=== PATIENT | male | born 1965 | race Caucasian/White ===

== ENCOUNTER 2018-07-24 05:44 | Day surgery (SDC) | payer OTHER ==
[~2018-07-24] VITALS: Ht 172.7 cm; Wt 114.5 kg
[2018-07-24] MEDS ORDERED: SODIUM CHLORIDE 0.9% 1,000 ML IV ONE ×2 (06:18→06:30)
[2018-07-24] MEDS ORDERED: GABA-531 PO (08:02)
[2018-07-24] MEDS ORDERED: MONT10TA21 PO (08:02)
[2018-07-24] MEDS ORDERED: NITR0.4T SL (08:02)
[2018-07-24] MEDS ORDERED: BISO5TAB26 PO (08:02)
[2018-07-24] MEDS ORDERED: ALBU8HFA IH (08:02)
[2018-07-24] MEDS ORDERED: OMEP20 PO (08:02)
[2018-07-24] MEDS ORDERED: LEVO25TA9 PO (08:02)
[2018-07-24] MEDS ORDERED: LOSA50TA64 PO (08:02)
[2018-07-24] MEDS ORDERED: PRED-284 PO (08:02)
[2018-07-24] MEDS ORDERED: FentaNYL CITRATE-PF 100 MCG/2 ML VIAL ONE (08:06)
[2018-07-24] MEDS ORDERED: MIDAZOLAM HCL 2 MG/2 ML VIAL ONE (08:06)
[2018-07-24] MEDS ORDERED: MethylPREDNISolone SOD SUCC 125 MG/2 ML VIAL ONE (08:38)
[2018-07-24] MEDS ORDERED: MethylPREDNISolone SOD SUCC 125 MG/2 ML VIAL IVP ONE (08:45)
[2018-07-24] MEDS ORDERED: BENZOCAINE 20% 50 MCG/SPRAY 57 GM TP ONE (12:00)
[2018-07-24] MEDS ORDERED: LIDOCAINE 2% 30 ML JELLY TP ONE (12:00)
[2018-07-24] MEDS ORDERED: LIDOCAINE 4% 50 ML SOLUTION TP ONE (12:00)
[2018-07-24] MEDS ORDERED: ALBUTEROL SULFATE 2.5 MG/0.5 ML NEB SOLUTION NEB ONE (12:00)
[2018-07-24] MEDS ORDERED: OXYGEN THERAPY IH SCH (20:00)
== END 2018-07-24 10:05 | disposition home or self-care (01) ==
LOC: SURGERY 05:44 → EDBD 05:44 → SURGERY 10:05
PROVIDERS: ATTEND Internal Medicine Critical Care Medicine
DX: J38.4 Edema of larynx (principal); B37.0 Candidal stomatitis; Z87.891 Personal history of nicotine dependence; Z98.890 Other specified postprocedural states; J44.9 Chronic obstructive pulmonary disease, unspecified; E03.9 Hypothyroidism, unspecified; M19.91 Primary osteoarthritis, unspecified site
CPT/HCPCS: 31623; 31624; 71045; 87015; 87070; 87101; 87206; 87220; J2250; J2930; J3010; J7030; 87205

== ENCOUNTER 2020-06-25 05:19 | Day surgery (SDC) | payer OTHER ==
[~2020-06-25] VITALS: Ht 172.7 cm; Wt 122.7 kg
[~2020-06-25 05:19] MED LIST: ALBU8HFA IH; BISO5TAB19 PO; GABA-1181 PO; LEVO25TA9 PO; LOSA50TA37 PO; MONT-35 PO; NITR0.4T SL; OMEP20 PO; PRED-284 PO
[2020-06-25] MEDS ORDERED: ALBUTEROL SULFATE 2.5 MG/0.5 ML NEB SOLUTION NEB ONE (05:20)
[2020-06-25] MEDS ORDERED: BENZOCAINE 20% 50 MCG/SPRAY 57 GM TP ONE (05:20)
[2020-06-25] MEDS ORDERED: LIDOCAINE 2% 30 ML JELLY TP ONE (05:20)
[2020-06-25] MEDS ORDERED: LIDOCAINE 4% 50 ML SOLUTION TP ONE (05:20)
[2020-06-25 05:41] LABS: COVID AG,FIA SOURCE NASOPHARYNGEAL
[2020-06-25] MEDS ORDERED: FURO80TA3 PO (06:19)
[2020-06-25] MEDS ORDERED: CHOL200016 PO (06:19)
[2020-06-25] MEDS ORDERED: FLUT16H NASAL (06:19)
[2020-06-25] MEDS ORDERED: IPRA3AMP24 PO (06:19)
[2020-06-25] MEDS ORDERED: MONT10TA32 PO (06:19)
[2020-06-25] MEDS ORDERED: SODIUM CHLORIDE 0.9% 1,000 ML IV ONE (06:30)
[2020-06-25] MEDS ORDERED: SODIUM CHLORIDE 0.9% 1,000 ML ONE (07:08)
[2020-06-25] MEDS ORDERED: MIDAZOLAM HCL 2 MG/2 ML VIAL ONE (07:44)
[2020-06-25] MEDS ORDERED: FentaNYL CITRATE PF 100 MCG/2 ML VIAL ONE (07:44)
[2020-06-25] MEDS ORDERED: MethylPREDNISolone SOD SUCC 125 MG/2 ML VIAL IVP ONE (09:00)
[2020-06-25] MEDS ORDERED: MethylPREDNISolone SOD SUCC 125 MG/2 ML VIAL ONE (10:29)
[2020-06-25] MEDS ORDERED: OXYGEN THERAPY IH SCH (20:00)
== END 2020-06-25 11:05 | disposition home or self-care (01) ==
LOC: SURGERY 05:19
PROVIDERS: ATTEND Internal Medicine Critical Care Medicine
DX: J38.4 Edema of larynx (principal); B37.0 Candidal stomatitis; I10 Essential (primary) hypertension; Z79.899 Other long term (current) drug therapy
CPT/HCPCS: 31623; 31624; 71045; 87070; 87101; 87205; 87206; 87220; 87426; 88108; 88184; 88185; 88312; C9803; J2250; J2930; J3010; J7030; 87015; J7613; Z7610